=== PATIENT | female | born 1945 | race Caucasian/White ===

== ENCOUNTER 2024-05-23 14:34 | Outpatient (OUT) | payer MEDICARE, SELFPAY | END 2024-05-23 14:35 | disposition home or self-care (01) | LOC: US 14:39 | PROVIDERS: PCP Nurse Practitioner Family; Visit Provider Nurse Practitioner Family | DX: R60.0 Localized edema (principal) | CPT/HCPCS: 93971 ==

== ENCOUNTER 2024-07-17 08:00 | Emergency (ER) | payer MEDICARE, OTHER, MEDICAID, SELFPAY ==
[2024-07-17 08:03] VITALS: BP 180/100; PULSE 106; TEMP 37.1; O2SAT 97; BMI 29.3
--- NOTE | 2024-07-17 08:46 | ED.GENADUL1 ---
HPI HPI - General Adult General Chief complaint: Chest Pain Stated complaint: chest pain Time Seen by Provider: 07/17/24 08:15 Source: patient Mode of arrival: ambulance History of Present Illness HPI narrative: Patient presents to ED complaining of epigastric pain and lower chest pain. She said this started yesterday and continued through the night. She had a couple episodes of vomiting last night. She said the pain is still there today. She arrived slightly hypertensive and tachycardic. She said the pain does radiate into her back and also up into the left shoulder. She did receive aspirin and nitro and route and said it did not really change the pain. She rates the pain about a 4 out of 10 at this time. I did offer pain medication but she declined at this time. No fever no lower abdominal pain. Patient does have a history of asthma but states this seems different than that. No cardiac history. She said the pain just comes and goes, nothing makes it better or worse. She is alert and oriented answering questions appropriately. She does report chronic leg swelling no new numbness tingling or weakness in her legs. Related Data Home Medications ?Medication ?Instructions ?Recorded ?Confirmed losartan 25 mg tablet 25 mg PO DAILY 07/17/24 07/17/24 montelukast 10 mg tablet 10 mg PO DAILY 07/17/24 07/17/24 Allergies Allergy/AdvReac Type Severity Reaction Status Date / Time Iodinated Contrast Media AdvReac Severe Unknown Verified 07/17/24 08:03 Penicillins AdvReac Severe Unknown Verified 07/17/24 08:03 Review of Systems ROS Status of ROS 10 or more systems reviewed and unremarkable except as noted in history and below [facility] Medical History (Updated 07/17/24 @ 12:58 by Shirley Wilson DO) Mitral valve prolapse ?I34.1 - Nonrheumatic mitral (valve) prolapse (ICD-10) Asthma ?J45.909 - Unspecified asthma, uncomplicated (ICD-10) Hypertension ?I10 - Essential (primary) hypertension (ICD-10) Social History Little interest or pleasure in doing things: not at all Feeling down, depressed, or hopeless: not at all Exam Narrative Exam Narrative: Time Seen: [] Vital Signs: [Per nurse's notes.] General: [Alert] Skin: [Warm, dry, no rash.] Head: [Normocephalic, atraumatic.] Neck: [Supple, trachea midline.] Eye: [Pupils are equal, round and reactive to light, extraocular movements are intact, normal conjunctiva.] Ears, nose, mouth and throat: oral mucosa moist. Cardiovascular: [Regular rate and rhythm, no murmur.] Respiratory: Diminished breath sounds bilateral bases mild crackles respirations are non-labored, breath sounds are equal.] Patient did report some pain with breathing Chest wall: [No tenderness, no deformity.] Gastrointestinal: [Soft, mid epigastric tenderness, non distended, normal bowel sounds.] MSK: 5 out of 5 muscle strength x 4 extremities no calf pain chronic bilateral lower extremity edema no weakness in the extremities Psychiatric: [Cooperative, appropriate mood & affect.] Neurological: [Alert and oriented to person, place, time, and situation, no focal neurological deficit observed.] Constitutional Vital Signs, click to edit/add: Last Vital Signs Temp 98.8 F 07/17/24 08:03 Pulse 106 H 07/17/24 08:03 Resp 18 07/17/24 08:03 BP 160/82 H 07/17/24 08:58 Pulse Ox 97 07/17/24 08:03 Course Vital Signs Vital signs: Vital Signs Temperature 98.8 F 07/17/24 08:03 Pulse Rate 106 H 07/17/24 08:03 Respiratory Rate 18 07/17/24 08:03 Blood Pressure 180/100 H 07/17/24 08:03 Pulse Oximetry 97 07/17/24 08:03 Temperature 98.8 F 07/17/24 08:03 Pulse Rate 106 H 07/17/24 08:03 Respiratory Rate 18 07/17/24 08:03 Blood Pressure 160/82 H 07/17/24 08:58 Pulse Oximetry 97 07/17/24 08:03 Medical Decision Making MDM Narrative Medical decision making narrative: Patient's labs are concerning for an elevated white blood cell count and elevated LFTs as well as an elevated lipase. Lactate is normal at this time. Patient CT scan shows Diane lithiasis and most likely gallstone pancreatitis. Patient request to be transferred to [facility]. I called and spoke to general surgery at [facility] and he agrees that the patient need transferred and further care. He accepts her at [facility]. He agreed with IV fluids IV Zosyn. He will not operate on the patient until tomorrow if he is operating, so he said she could eat something light if she is hungry or thirsty. Patient and family were updated that she will be sent over to [facility] when a bed is available. She is resting comfortably in the bed in no acute distress at this time. Patient comfortable with care plan for transfer Differential Diagnosis Differential Diagnosis: Pancreatitis, cholelithiasis, chest pain Lab Data Lab results reviewed: Yes I reviewed the patient's lab results Labs: Lab Results 07/17/24 07/17/24 07/17/24 Range/Units 08:35 09:49 11:35 WBC 18.7 H (4.0-11.0) 10^3/uL RBC 5.70 H (4.20-5.40) 10^6/uL Hgb 16.5 H (12.0-16.0) g/dL Hct 50.1 H (36.0-48.0) % MCV 87.9 (81.0-99.0) fL MCH 28.9 (26.7-34.0) pg MCHC 32.9 (29.9-35.2) g/dL RDW 13.2 (11.0-15.0) % Plt Count 160 (150-450) 10^3/uL MPV 10.7 (9.5-13.5) fL Seg Neuts % (Manual) 92.0 H (43.0-75.0) Band Neutrophils % 2.0 (0-5) % Lymphocytes % (Manual) 0.0 L (20.5-60.0) % Monocytes % (Manual) 6.0 (1.7-12.0) % Eosinophils % (Manual) 0.0 L (0.9-7.0) % Basophils % (Manual) 0.0 L (0.2-2.0) % Neutrophils # (Manual) 17.20 H (1.4-6.5) 10^3/uL Band Neutrophils # 0.4 H (0.0-0.3) 10^3/uL Lymphocytes # (Manual) 0.00 L (1.20-3.80) 10^3/uL Monocytes # (Manual) 1.12 H (0.30-0.80) 10^3/uL Eosinophils # (Manual) 0.00 (0.00-0.70) 10^3/uL Basophils # (Manual) 0.00 (0.00-0.10) 10^3/uL PT 10.9 (9.0-11.6) sec INR 1.03 Sodium 142 (136-145) mmol/L Potassium 4.1 (3.5-5.1) mmol/L Chloride 103 (98-107) mmol/L Carbon Dioxide 30.1 (21.0-32.0) mmol/L Anion Gap 13.0 BUN 13.0 (7.0-18.0) mg/dL Creatinine 0.61 (0.55-1.02) mg/dL Est GFR ( Amer) >60 (>=60 mL/min/1.73m^2) Est GFR (Non-Af Amer) >60 (>=60 mL/min/1.73m^2) BUN/Creatinine Ratio 21.3 Glucose 169 H (74-106) mg/dL Lactate 1.9 (0.4-2.0) mmol/L Calcium 9.2 (8.5-10.1) mg/dL Total Bilirubin 2.8 H (0.2-1.0) mg/dL AST 405 H (15-37) U/L ALT 442 H (14-59) U/L Alkaline Phosphatase 93 (46-116) U/L Troponin I High Sens 4.5 (4.0-51.3) pg/mL Total Protein 6.6 (6.4-8.2) g/dL Albumin 3.4 (3.4-5.0) g/dL Globulin 3.2 g/dL Albumin/Globulin Ratio 1.1 Lipase 2137.0 H* (16.0-77.0) U/L Urine Color Yellow (YELLOW) Urine Clarity Clear (CLEAR) Urine pH 7.0 (5.0-9.0) Ur Specific [place] 1.010 (1.005-1.025) Urine Protein >=300 A (NEG/TRACE) mg/dL Urine Glucose (UA) Negative (NEGATIVE) mg/dL Urine Ketones Negative (NEGATIVE) mg/dL Urine Occult Blood Large A (NEGATIVE) Urine Nitrite Negative (NEGATIVE) Urine Bilirubin Negative (NEGATIVE) Urine Urobilinogen 0.2 (0.2-1.0) EU/dL Ur Leukocyte Esterase Negative (NEGATIVE) Urine RBC 20-50 A (0-2) #/HPF Urine WBC 2-5 A (NONE SEEN) #/HPF Ur Squamous Epith Cells Few A (NONE/RARE) #/LPF Urine Crystals None seen (None Seen) #/HPF Urine Bacteria None seen (NONE SEEN) #/HPF Urine Casts None seen (NONE SEEN) #/LPF Urine Mucus Small A (NONE SEEN) Ur Culture Indicated? No ECG Data Attestation: I personally reviewed and interpreted this ECG as follows: Interpretation: EKG INTERPRETATION Time: [] 804 Rate: [] 105 Rhythm: _ [] Sinus tachycardia occasional PVCs ST segments: _ [] No acute ST elevation or depression T waves: _ [] Ectopy: _ [] P wave/CT interval: _ [] QRS interval: _ [] QT interval: _ [] Comparison: _ [] Comparison EKG date: [] Performed by: [self] Discharge Plan Discharge Chief Complaint: Chest Pain Clinical Impression: Acute gallstone pancreatitis Patient Disposition: [facility] Time of Disposition Decision: 12:57 Discharge location: [facility] Mode of Transportation: EMS
[2024-07-17 08:48] LABS: Hematocrit 50.1 % (36.0-48.0); Hemoglobin 16.5 g/dL (12.0-16.0); Mean Corpuscular HGB Conc 32.9 g/dL (29.9-35.2); Mean Corpuscular Hemoglobin 28.9 pg (26.7-34.0); Mean Corpuscular Volume 87.9 fL (81.0-99.0); Mean Platelet Volume 10.7 fL (9.5-13.5); Platelet Count 160 10^3/uL (150-450); Red Cell Distribution Width 13.2 % (11.0-15.0); White Blood Count 18.7 10^3/uL (4.0-11.0)
[2024-07-17 08:58] VITALS: BP 160/82
[2024-07-17 08:58] LABS: INR 1.03; Prothrombin Time 10.9 sec (9.0-11.6)
[2024-07-17 09:00] LABS: Alanine Aminotransferase 442 U/L (14-59); Albumin Globulin Ratio 1.1; Albumin Level 3.4 g/dL (3.4-5.0); Alkaline Phosphatase 93 U/L (46-116); Aspartate Amino Transferase 405 U/L (15-37); BUN Creatinine Ratio 21.3; Bilirubin Total 2.8 mg/dL (0.2-1.0); Calcium 9.2 mg/dL (8.5-10.1); Carbon Dioxide 30.1 mmol/L (21.0-32.0); Chloride 103 mmol/L (98-107); Estimated GFR (African America >60 (>=60 mL/min/1.73m^2); Estimated GFR (Non-African Ame >60 (>=60 mL/min/1.73m^2); Globulin 3.2 g/dL; Glucose 169 mg/dL (74-106); Potassium 4.1 mmol/L (3.5-5.1); Sodium 142 mmol/L (136-145); Total Protein 6.6 g/dL (6.4-8.2); Troponin I High Sensitivity 4.5 pg/mL (4.0-51.3)
[2024-07-17 09:01] LABS: Band Neutrophils Absolute 0.4 10^3/uL (0.0-0.3); Monocytes Absolute Manual 1.12 10^3/uL (0.30-0.80)
[2024-07-17] MEDS: DEXAMETHASONE SOD PHOS 10 MG/ML VIAL IV (09:05)
[2024-07-17] MEDS: DIPHENHYDRAMINE HCL 50 MG/ML VIAL 25 MG IVP (09:05)
[2024-07-17] MEDS: PIPERACILLIN SODIUM/TAZOBACTAM 3.375 GM in 0.9 % SODIUM CHLORIDE 50 ML IV (09:59)
[2024-07-17 10:16] LABS: Lactate/Lactic Acid 1.9 mmol/L (0.4-2.0)
[2024-07-17] MEDS: 0.9 % SODIUM CHLORIDE 1,000 ML 1000 ML IV (10:35)
[2024-07-17 11:57] LABS: Bilirubin Urine NEGATIVE (NEGATIVE); Blood Urine LARGE (NEGATIVE); Clarity Urine CLEAR (CLEAR); Color Urine YELLOW (YELLOW); Glucose Urine UA NEGATIVE (NEGATIVE); Ketones Urine NEGATIVE (NEGATIVE); Leukocyte Esterase Urine NEGATIVE (NEGATIVE); Nitrite Urine NEGATIVE (NEGATIVE); Protein Urine >=300 mg/dL (NEG/TRACE); Urobilinogen Urine 0.2 EU/dL (0.2-1.0)
[2024-07-17 12:01] LABS: Urine Microscopic Indicated YES
[2024-07-17 12:26] LABS: Bacteria Urine NONE SEEN #/HPF (NONE SEEN); Cast Seen? NONE SEEN #/LPF (NONE SEEN); Crystals Seen? None Seen #/HPF (None Seen); Mucus Urine SMALL (NONE SEEN); RBC Urine 20-50 #/HPF (0-2); Squamous Epithelial Cell Urine FEW #/LPF (NONE/RARE)
[2024-07-17 12:27] LABS: Urine Culture Indicated NO
[2024-07-17 14:12] VITALS: BP 144/90; PULSE 105; O2SAT 94
--- NOTE | 2024-07-17 16:03 | ECG_ITS ---
[facility] Test Date: 2024-07-17 Pat Name: KARLOS FREITAS Department: Room: - Gender: Female [employer]: : 1945 Requested By: [id number] Order Number: [id number] Reading MD: KANWAL PANTOJA M.D. Measurements Intervals [place] Rate: 105 P: 42 TX: 180 QRS: -23 QRSD: 68 T: 6 QT: 276 QTc: 337 Interpretive Statements 1120 Sinus tachycardia 1570 with occasional ventricular premature complexes 3114 Cannot rule out anterior myocardial infarction, age undetermined 8305 Short QTc interval Nonspecific ST abnormality 9150 abnormal ECG Compared to ECG 03/23/2022 06:17:22 No significant changes Electronically Signed On 07-17-2024 21:07:47 EDT by KANWAL PANTOJA M.D.
--- NOTE | 2024-07-17 16:09 | PC.NURSE ---
Report given to Tiffani EMT with [facility], pt care turned over at this time.
--- NOTE | 2024-07-17 16:13 | PC.NURSE ---
Report called to Kelsea HOLGUIN at [facility] [place] going to room 330
== END 2024-07-17 16:14 | disposition short-term general hospital (02) ==
PROVIDERS: Emergency Provider Emergency Medicine; PCP Nurse Practitioner Family
DX: K85.10 Biliary acute pancreatitis without necrosis or infection (principal); J45.909 Unspecified asthma, uncomplicated; I10 Essential (primary) hypertension
CPT/HCPCS: 36415; 74177; 80053; 81001; 83605; 83690; 84484; 85007; 85027; 85610; 87040; 93005; 96361; 96365; 96375; 99285; J1100; J1200; J2543; Q9967